=== PATIENT | female | born 1985 | race Caucasian/White ===

== ENCOUNTER 2019-12-02 18:22 | Emergency (ER) | payer OTHER ==
[~2019-12-02] VITALS: Ht 162.6 cm; Wt 68.9 kg
[2019-12-02 18:36] VITALS: Ht 162.6 cm; Wt 68.9 kg
[2019-12-02 19:25] VITALS: BP 149/91
== END 2019-12-02 19:25 | disposition home or self-care (01) ==
LOC: ED 18:22
DX: M54.6 Pain in thoracic spine (principal); M54.9 Dorsalgia, unspecified; M45.9 Ankylosing spondylitis of unspecified sites in spine; Z88.8 Allergy status to other drugs, medicaments and biological substances; V49.59XA Passenger injured in collision with other motor vehicles in traffic accident, initial encounter; Y93.89 Activity, other specified; Y92.413 State road as the place of occurrence of the external cause; Y99.8 Other external cause status